=== PATIENT | male | born 1950 | race Caucasian/White ===

== ENCOUNTER 2016-07-17 04:06 | Inpatient (IN) | payer MEDICARE, OTHER ==
[~2016-07-17] VITALS: Ht 185.4 cm; Wt 104.3 kg
--- NOTE | 2016-07-17 04:15 | NUR ---
To bed 6 a 66 yo male bibra with c/o increased generalized weakness and difficulty ambulating. No s/s of acute distress. Aaox4, Breathing even and unlabored. Denies pain, sob, n/v. Noted with right leg pitting edema +4 and left lower leg redness with open blisters per patient. Gowned. Cardiac monitoring on. Awaiting for er md drummond.
--- NOTE | 2016-07-17 04:17 | NUR ---
Dr De La Vega at bedside for eval.
[2016-07-17] MEDS ORDERED: VANCOMYCIN 1 GM in IV D5W 250 ML IV ONE (04:30)
[2016-07-17] MEDS ORDERED: ASPIRIN 81 MG TAB.CHEW PO ONE ×2 (04:30→08:30)
[2016-07-17] MEDS ORDERED: PIPERACILLIN /TAZOBACTAM 3.375 G in IV D5W 50 ML IV ONE (04:30)
[2016-07-17] MEDS ORDERED: ASPIRIN 81 MG TAB.CHEW ONE (04:52)
[2016-07-17] MEDS ORDERED: IV D5W 0 ML IV ONE ×2 (04:53→05:58)
[2016-07-17] MEDS ORDERED: IV SET PRIMARY PUMP SET 1 EA INFUS.SET MC ONE ×3 (04:53→11:06)
[2016-07-17] MEDS ORDERED: IV SET PRIMARY 1 EA INFUS.SET MC ONE (04:53)
[2016-07-17] MEDS ORDERED: PIPERACILLIN /TAZOBACTAM 3.375 G VIAL IV ONE ×2 (04:53→04:54)
[2016-07-17] MEDS ORDERED: IV NS 0.9% 500 ML IV ONE (04:53)
--- NOTE | 2016-07-17 05:05 | NUR ---
started a saline lock on the left forearm g18.
[2016-07-17] MEDS: IV NS 0.9% 1,000 ML BAG IV ONE ×2 (05:10→05:19)
--- NOTE | 2016-07-17 05:19 | NUR ---
dental laboratory technician at bedside to draw blood.
[2016-07-17 05:55] LABS: HEMATOCRIT 37 % (39-51); HEMOGLOBIN 11.4 g/dL (13.5-17.5); LYMPHOCYTES # (AUTO) 0.4 /CMM (0.8-4.8); LYMPHOCYTES % (AUTO) 3.6 % (20.0-44.0); MEAN CORPUSCULAR HEMOGLOBIN 28 PG (26.0-33.0); MEAN CORPUSCULAR HGB CONC 31 g/dl (31.0-36.0); MEAN CORPUSCULAR VOLUME 90 fL (80-96); MONOCYTES # (AUTO) 0.6 /CMM (0.1-1.30); MONOCYTES % (AUTO) 5.6 % (2.0-12.0); NEUTROPHILS # (AUTO) 9.5 /CMM (1.8-8.9); NEUTROPHILS % (AUTO) 90.8 % (43.0-81.0); PLATELET COUNT (AUTO) 177 /CMM (150-450); RDW COEFFICIENT OF VARIATION 19.4 (11.5-15.0); RED BLOOD CELL COUNT(AUTO) 4.08 MIL/uL (4.5-6.0); WHITE BLOOD COUNT (AUTO) 10.4 K/uL (4.3-11.0)
[2016-07-17] MEDS ORDERED: VANCOMYCIN 1 GM VIAL ONE (05:59)
[2016-07-17 06:09] LABS: INR 1.6 (0.87-1.13); PROTHROMBIN TIME 17.6 SECS (9.5-12.7)
[2016-07-17 06:10] LABS: ALBUMIN 3.3 g/dL (3.4-5.0); BILIRUBIN,DIRECT 0.7 mg/dL (0.0-0.2); BILIRUBIN,TOTAL 1.5 mg/dL (0.2-1.0); CALCIUM, SERUM 8.8 mg/dL (8.5-10.1); TOTAL PROTEIN, SERUM 6.1 g/dL (6.4-8.2)
[2016-07-17 06:12] LABS: TROPONIN I 0.197 ng/mL (0.00-0.056)
--- NOTE | 2016-07-17 06:15 | NUR ---
Dr Waterman at bedside.
--- NOTE | 2016-07-17 06:45 | NUR ---
Sukhjinder mora at bedside.
--- NOTE | 2016-07-17 07:09 | NUR ---
[facility] DR. NATA MISHRA.
[2016-07-17] MEDS ORDERED: ASPIRIN 325 MG TABLET ONE (07:13)
--- NOTE | 2016-07-17 07:13 | NUR ---
Report given to Hiram MAURO for allison.
--- NOTE | 2016-07-17 07:15 | NUR ---
RECEIVED REPORT FROM VIKAS MAURO
[2016-07-17] MEDS: ASPIRIN 325 MG TABLET PO ONE ×2 (07:18→08:53)
--- NOTE | 2016-07-17 07:30 | NUR ---
ASPIRIN 325 NOT GIVEN DUE TO DUPLICATE ORDER
--- NOTE | 2016-07-17 07:50 | NUR ---
*SPOKE TO RONAN AT [facility] TRANSFER LINE [phone], FACESHEET FAXED TO [phone]. *SPOKE TO THAO AT CASE MANAGEMENT AT [facility], FACESHEET TO [phone]
[2016-07-17] MEDS ORDERED: LEVO112T2 PO (08:14)
[2016-07-17] MEDS ORDERED: CALC0.253 PO (08:14)
[2016-07-17] MEDS ORDERED: BUME2TAB3 PO (08:14)
[2016-07-17] MEDS ORDERED: APIX5TAB PO (08:14)
[2016-07-17] MEDS ORDERED: HYDR-548 PO (08:15)
[2016-07-17] MEDS ORDERED: ALLO100T PO (08:15)
[2016-07-17] MEDS ORDERED: AMIO200T2 PO (08:15)
[2016-07-17] MEDS ORDERED: FOLI0.8T2 PO (08:17)
[2016-07-17] MEDS ORDERED: POTA10TA15 PO (08:18)
[2016-07-17] MEDS ORDERED: CARV25TA2 PO (08:18)
[2016-07-17] MEDS ORDERED: ATOR40TA PO (08:18)
--- NOTE | 2016-07-17 08:24 | NUR ---
spoke to odalis at [facility] case management [phone]. NO awailable beds at [facility]. OK to admit patient to [facility] tele unit. Odalis showcase trimmer authorized.
--- NOTE | 2016-07-17 08:29 | NUR ---
[facility] paged, dr butler community service organization director [phone]
[2016-07-17] MEDS ORDERED: ASPIRIN EC 81 MG TABLET.DR PO ONE (08:30)
--- NOTE | 2016-07-17 08:46 | NUR ---
REPORT GIVEN TO [place] ZARAGOZA FOR SIVAKUMAR TELE [phone]
--- NOTE | 2016-07-17 08:59 | NUR ---
clinical notes faxed to [facility] case work aide [phone]. cell phone # [phone]
--- NOTE | 2016-07-17 09:17 | NUR ---
patient trasnported to 3w. vss
[2016-07-17 10:00] VITALS: BP 104/73
--- NOTE | 2016-07-17 10:00 | NUR ---
ADMITTED FROM ER. PT. AWAKE, ALERT AND ORIENTED X4. DENIED PAIN AND SOB. V-PACED ON THE MONITOR. HR 70~80. NOTED SKIN ISSUE(SEE THE CHART AND ASSESSMENT). WOUND CARE CONSULT. TOOK A PICTURES. RT. FOOT EDEMA. APPLIED DRESSING ON THE LT LEG. GIVEN UNIT ORIENTATION. SIDE RAILS UP. CALL LIGHT WITHIN REACH. MONITOR CLOSELY.
[2016-07-17 10:18] VITALS: BP 104/73
[2016-07-17] MEDS ORDERED: Z GUARD REMEDY 2 OZ OINT TP PRN (10:30)
[2016-07-17] MEDS ORDERED: ZOLPIDEM TARTRATE 5 MG TABLET PO PRN (10:30)
[2016-07-17] MEDS ORDERED: ONDANSETRON HCL/PF 4 MG/2 ML VIAL IVP PRN (10:30)
[2016-07-17] MEDS ORDERED: MAG HYDROX/AL HYDROX/SIMETH 30 ML UDC PO PRN (10:30)
[2016-07-17] MEDS ORDERED: MAGNESIUM HYDROXIDE 30 ML UDC PO PRN (10:30)
[2016-07-17] MEDS: IV NS 0.9% 1,000 ML IV PRN (11:22)
[2016-07-17] MEDS: LEVOTHYROXINE SODIUM 112 MCG TABLET PO SCH (13:16)
[2016-07-17] MEDS: AMIODARONE HCL 200 MG TABLET PO SCH (13:16)
[2016-07-17] MEDS: APIXABAN 5 MG TABLET PO SCH ×2 (13:16→17:51)
[2016-07-17] MEDS: PANTOPRAZOLE 40 MG TABLET.DR PO SCH (13:16)
--- NOTE | 2016-07-17 15:00 | NUR ---
NOTED UNCONTROLLED A-FIB. PT ASYMPTOMATIC. BP 109/70. NOTIFIED TO DR. PEACE. GAVE AMIODARONE PO.
--- NOTE | 2016-07-17 15:18 | NUR ---
WOUND CARE CONSULT: PATIENT SEEN AND SKIN ASSESSMENT DONE. PATIENT WEAK, UNABLE TO TURN AND REPOSITION SELF IN BED, CONTINENT, MALGORZATA 15, ON STEPHANIE ISOFLEX RICK BED. SEE TODAY'S SKIN ASSESSMENT IN PCS ALONG WITH RECOMMENDATIONS. RECOMMEND MOISTURE PROTECTION AND PRESSURE PREVENTION MEASURES ORDERED. ALL DISCUSSED WITH NURSING STAFF. MD IN AGREEMENT WITH PLAN OF CARE. Addendum: 07/17/16 at 1520 by ILANA CAMPBELL WNDNU Amended: Links added.
[2016-07-17 16:00] VITALS: BP 98/57
[2016-07-17] MEDS ORDERED: SECONDARY IV SET 1 EA INFUS.SET MC ONE (16:50)
[2016-07-17] MEDS: HYDROGEL DRESSING 90 GM TUBE TP SCH (17:05)
[2016-07-17] MEDS: NEOMY SULF/BACITRAC ZN/POLY 15 GM TUBE TP SCH (17:05)
--- NOTE | 2016-07-17 19:00 | NUR ---
CLOSING SHIFT PT. AWAKE, ALERT AND ORIENTED X4. DENIED PAIN AND SOB. V-PACED ON THE MONITOR. HR 70~80. SIDE RAILS UP. CALL LIGHT WITHIN REACH. MONITOR CLOSELY.
--- NOTE | 2016-07-17 19:30 | NUR ---
TELE/RN RECEIVE PATIENT AWAKE, ALERT, ORIENTED, COMFORTABLE, NO C/O PAIN AT THIS TIME, NO SIGNS OF DISTRESS NOTED, CALL LIGHT IN REACH. WILL MONITOR.
[2016-07-17 20:00] VITALS: BP 94/64
[2016-07-17] MEDS: CARVEDILOL 12.5 MG TABLET PO SCH (21:00)
--- NOTE | 2016-07-17 22:00 | NUR ---
TELE/RN PATIENT SLEEPING, AROUSABLE, APPEAR COMFORTABLE, NO SIGNS OF DISTRESS NOTED, CALL LIGHT IN REACH. WILL CONTINUE TO MONITOR.
[2016-07-18] VITALS: BP 110/66
[2016-07-18] MEDS: IV NS 0.9% 1,000 ML IV PRN ×2 (01:09→18:03)
--- NOTE | 2016-07-18 06:11 | NUR ---
TELE/RN AWAKE, COMFORTABLE, NO CHANGE IN CONDITION. ALL NEEDS ATTENDED AT THIS TIME. WILL CONTINUE TO MONITOR.
[2016-07-18 06:59] VITALS: BP 102/62
--- NOTE | 2016-07-18 07:00 | NUR ---
ALARM SECURITY OR SURVEILLANCE MONITOR INITIAL NOTE REPORT RECEIVED AT THE BEDSIDE. PATIENT IS SLEEPING. NO SOB OR DISTRESS NOTED AT THIS TIME. PATIENT DOES NOT APPEAR TO BE IN PAIN, NO FACIAL GRIMACE NOTED. HEART RATE IS VPACING AT 73. BED IN A LOW POSITION, CALL LIGHT WITHIN PATIENT REACH. WILL CONTINUE TO MONITOR.
[2016-07-18 08:00] VITALS: BP 92/68
[2016-07-18 08:32] LABS: EOSINOPHILS # (AUTO) 0.1 /CMM (0.0-0.7); HEMATOCRIT 34 % (39-51); HEMOGLOBIN 10.6 g/dL (13.5-17.5); LYMPHOCYTES # (AUTO) 0.7 /CMM (0.8-4.8); LYMPHOCYTES % (AUTO) 7.8 % (20.0-44.0); MEAN CORPUSCULAR HEMOGLOBIN 28 PG (26.0-33.0); MEAN CORPUSCULAR HGB CONC 31 g/dl (31.0-36.0); MEAN CORPUSCULAR VOLUME 90 fL (80-96); MONOCYTES # (AUTO) 0.6 /CMM (0.1-1.30); NEUTROPHILS # (AUTO) 7.3 /CMM (1.8-8.9); NEUTROPHILS % (AUTO) 84.2 % (43.0-81.0); PLATELET COUNT (AUTO) 124 /CMM (150-450); RDW COEFFICIENT OF VARIATION 19.7 (11.5-15.0); RED BLOOD CELL COUNT(AUTO) 3.76 MIL/uL (4.5-6.0); WHITE BLOOD COUNT (AUTO) 8.7 K/uL (4.3-11.0)
[2016-07-18 08:42] LABS: ALBUMIN 2.6 g/dL (3.4-5.0); BILIRUBIN,TOTAL 0.8 mg/dL (0.2-1.0); CALCIUM, SERUM 8.2 mg/dL (8.5-10.1); CREATININE 4.2 mg/dL (0.6-1.3); MAGNESIUM 2.7 mg/dL (1.8-2.4); PHOSPHORUS 4.7 mg/dL (2.5-4.9); POTASSIUM 3.8 mmol/L (3.5-5.1); TOTAL PROTEIN, SERUM 5.2 g/dL (6.4-8.2)
[2016-07-18] MEDS: AMIODARONE HCL 200 MG TABLET PO SCH (09:00)
[2016-07-18] MEDS: CARVEDILOL 12.5 MG TABLET PO SCH ×2 (09:00→22:35)
[2016-07-18] MEDS: PANTOPRAZOLE 40 MG TABLET.DR PO SCH (09:05)
[2016-07-18] MEDS: LEVOTHYROXINE SODIUM 112 MCG TABLET PO SCH (09:05)
[2016-07-18] MEDS: APIXABAN 5 MG TABLET PO SCH ×2 (09:05→16:45)
[2016-07-18] MEDS: HYDROGEL DRESSING 90 GM TUBE TP SCH (09:06)
[2016-07-18] MEDS: NEOMY SULF/BACITRAC ZN/POLY 15 GM TUBE TP SCH (09:06)
--- NOTE | 2016-07-18 11:39 | NUR ---
MS RN NOTES PATIENT COMPLAINING OF GENERALIZED ACHING PAIN. INFORMED DR PADILLA TO GAVE A VERBAL ORDER FOR GABAPENTIN 100MG TID. ORDERS PLACED AND CARRIED OUT.
[2016-07-18 12:00] VITALS: BP 122/70
[2016-07-18 12:12] LABS: HEPATITIS A AB, IgM Negative (Negative); HEPATITIS B CORE AB, IgM Negative (Negative); HEPATITIS C VIRUS AB <0.1 s/co ratio (0.0-0.9)
[2016-07-18] MEDS: GABAPENTIN 100 MG CAPSULE PO SCH ×2 (12:27→16:45)
[2016-07-18] MEDS ORDERED: FEE PK DOSING 1 MIN EA MC ONE (12:40)
--- NOTE | 2016-07-18 12:53 | NUR ---
ELECTRIC LIFT TRUCK DRIVER NOTE PATIENT STILL COMPLAINING OF 6/10 PAIN IN LOWER DIAPHRAGM. PATIENT ALSO STATING THAT HE HAS THE URGE TO URINATE, BUT IS UNABLE. LAST VOID WAS 0800. DID A BLADDER SCAN ON THE PATIENT AND IT SHOWS >198 ML IN BLADDER. TRIED TO ASSIST PATIENT TO VOID, BUT PATIENT WAS UNABLE. CALLED [facility] AND LEFT A MESSAGE FOR DR PEACE. AWAITING RETURN CALL.
--- NOTE | 2016-07-18 13:13 | NUR ---
SOLAR WATER HEATER INSTALLER NOTE SPOKE TO DR PEACE. STATES THAT IF THE PATIENT HAS NOT VOIDED WITHIN ONE HOUR, THAT IT IS OK TO INSERT A GEORGE. ALSO ORDERED MORPHINE 1MG Q4PRN FOR PAIN. WILL CARRY OUT ORDERS.
[2016-07-18] MEDS ORDERED: MORPHINE SULFATE INJ 2 MG/ML DISP.SYRIN IV PRN (13:30)
[2016-07-18] MEDS ORDERED: VANCOMYCIN 500 MG in IV D5W 100 ML IV SCH (14:00)
[2016-07-18] MEDS ORDERED: SECONDARY IV SET 1 EA INFUS.SET MC ONE (14:28)
--- NOTE | 2016-07-18 15:35 | NUR ---
CORE SHAPER SIDES NOTES RAFIA IS HUNG LATE I WAS DEALING WITH A CRITICAL PATIENT.
[2016-07-18 16:00] VITALS: BP 107/68
--- NOTE | 2016-07-18 16:28 | NUR ---
8TH GRADE MATHEMATICS TEACHER NOTES INSERTED GEORGE PER DR PEACE'S ORDER IF PATIENT HAS NOT VOIDED. PATIENT TOLERATED WELL.
[2016-07-18 17:55] LABS: CANNABINOID, URINE NEGATIVE (NEGATIVE); PHENCYCLIDINE SCREEN,URINE NEGATIVE (NEGATIVE)
--- NOTE | 2016-07-18 19:26 | NUR ---
MS RN CLOSING NOTES NO SIGNIFICANT CHANGES IN PATIENT CONDITION THROUGHOUT THE SHIFT. NO SOB OR DISTRESS NOTED AT THIS TIME. PATIENT DENIES SIGNIFICANT PAIN. BED IN A LOW POSITION, CALL LIGHT WITHIN PATIENT REACH. WILL ENDORSE FOR SIVAKUMAR.
--- NOTE | 2016-07-18 19:30 | NUR ---
TELE/RN RECEIVE PATIENT SLEEPING, APPEAR COMFORTABLE, NO DISTRESS NOTED, IVF INFUSING, CALL LIGHT IN REACH. WILL MONITOR.
--- NOTE | 2016-07-18 20:00 | NUR ---
TELE/RN RECEIVE A CALL FROM MONSERRAT OF [facility] INFORMING THAT A BED IS AVAILABLE AND THAT PATIENT CAN BE TRANSFERRED. MADE MAP DRAFTER AWARE.
--- NOTE | 2016-07-18 20:35 | NUR ---
TELE/RN NOTIFIED DR. RILEY TERRELL ABOUT THE TRANSFER AND TO MAKE AN MD TO MD REPORT TO [facility]. [facility]SERRAT CALLED BACK INFORMING ME THAT DR. RILEY TERRELL CALLED THEM ALREADY. TRANSFER PROCESS WAS INITIATED.
--- NOTE | 2016-07-18 22:30 | NUR ---
TELE/RN AMBULANCE HERE. REPORT GIVEN.
[2016-07-18 22:35] VITALS: BP 117/66
--- NOTE | 2016-07-18 23:17 | NUR ---
TELE/RN PATIENT LEFT THE FLOOR AT 2300 IN STABLE CONDITION, WITH THE F/C, BELONGINGS.
--- NOTE | 2016-07-18 23:17 | NUR ---
TELE/RN REPORT GIVEN TO [place] WAGONER IN [facility]. Addendum: 07/18/16 at 2319 by MARY BRITT RN REPORT GIVEN AT 2300.
== END 2016-07-18 23:05 | disposition short-term general hospital (02) | DRG 280 ==
LOC: ER 04:08 → EDBD 04:08 → TELE 08:51
PROVIDERS: ADMIT Internal Medicine; ATTEND Internal Medicine
DX: I21.4 Non-ST elevation (NSTEMI) myocardial infarction (principal); G93.41 Metabolic encephalopathy; K72.00 Acute and subacute hepatic failure without coma; L03.116 Cellulitis of left lower limb; I13.0 Hypertensive heart and chronic kidney disease with heart failure and stage 1 through stage 4 chronic kidney disease, or unspecified chronic kidney disease; N17.9 Acute kidney failure, unspecified; D68.59 Other primary thrombophilia; L03.115 Cellulitis of right lower limb; I50.9 Heart failure, unspecified; E03.9 Hypothyroidism, unspecified; E11.22 Type 2 diabetes mellitus with diabetic chronic kidney disease; I48.91 Unspecified atrial fibrillation; L89.322 Pressure ulcer of left buttock, stage 2; E78.5 Hyperlipidemia, unspecified; E86.0 Dehydration; G89.29 Other chronic pain; M10.9 Gout, unspecified; N20.0 Calculus of kidney; N18.9 Chronic kidney disease, unspecified; I73.9 Peripheral vascular disease, unspecified; G47.30 Sleep apnea, unspecified; Z95.0 Presence of cardiac pacemaker; L89.152 Pressure ulcer of sacral region, stage 2; L98.9 Disorder of the skin and subcutaneous tissue, unspecified; R74.0 Nonspecific elevation of levels of transaminase and lactic acid dehydrogenase [LDH]; E83.9 Disorder of mineral metabolism, unspecified; E11.51 Type 2 diabetes mellitus with diabetic peripheral angiopathy without gangrene; S81.002A Unspecified open wound, left knee, initial encounter; S81.001A Unspecified open wound, right knee, initial encounter; X58.XXXA Exposure to other specified factors, initial encounter; Y93.9 Activity, unspecified; Y92.009 Unspecified place in unspecified non-institutional (private) residence as the place of occurrence of the external cause; Y99.9 Unspecified external cause status; S81.802A Unspecified open wound, left lower leg, initial encounter
CPT/HCPCS: 36415; 71010-TC; 76705-TC; 76770-TC; 80048-TC; 80053-TC; 80061-TC; 80074; 80076-TC; 80305; 82140-TC; 82962-TC; 83735-TC; 84100-TC; 84484-TC; 85025-TC; 85730-TC; 86850-TC; 87081-TC; 87340; 93307-TC; 97001-TC; A4606; A6248; A6402; J2543; J3370; J7030; J7040; J7060; Z7610

== ENCOUNTER 2016-09-10 10:29 | Inpatient (IN) | payer OTHER ==
[~2016-09-10] VITALS: Ht 182.9 cm; Wt 95.7 kg
[~2016-09-10 10:29] MED LIST: ALLO100T PO; AMIO200T2 PO; APIX5TAB PO; ATOR40TA PO; BUME2TAB3 PO; CALC0.253 PO; CARV25TA2 PO; FOLI0.8T2 PO; HYDR-548 PO; LEVO112T2 PO; POTA10TA15 PO
--- NOTE | 2016-09-10 10:40 | NUR ---
bibra from home dt bilateral leg pain,. patient noted ble with open wound, swollen and with redness. Per patient, this has been going on since April,. patient is aao4, appears in no apparent distress . Respiration even and unlabored,. Skin is warm to touch and non diaphoretic. Pt is afebrile. vss.Will cont to monitor
[2016-09-10] MEDS ORDERED: CEFAZOLIN 2 GM in IV D5W 100 ML IV ONE (11:00)
[2016-09-10 11:03] LABS: BASOPHILS % (AUTO) 0.7 % (0.0-2.0); EOSINOPHILS % (AUTO) 0.2 % (0.0-6.0); HEMATOCRIT 38 % (39-51); HEMOGLOBIN 12.2 g/dL (13.5-17.5); LYMPHOCYTES # (AUTO) 0.9 /CMM (0.8-4.8); MEAN CORPUSCULAR HEMOGLOBIN 28 PG (26.0-33.0); MEAN CORPUSCULAR HGB CONC 32 g/dl (31.0-36.0); MEAN CORPUSCULAR VOLUME 88 fL (80-96); MONOCYTES # (AUTO) 0.7 /CMM (0.1-1.30); MONOCYTES % (AUTO) 9.6 % (2.0-12.0); NEUTROPHILS # (AUTO) 5.2 /CMM (1.8-8.9); NEUTROPHILS % (AUTO) 76.5 % (43.0-81.0); PLATELET COUNT (AUTO) 94 /CMM (150-450); RDW COEFFICIENT OF VARIATION 20.7 (11.5-15.0); RED BLOOD CELL COUNT(AUTO) 4.33 MIL/uL (4.5-6.0); WHITE BLOOD COUNT (AUTO) 6.8 K/uL (4.3-11.0)
--- NOTE | 2016-09-10 11:09 | NUR ---
blood sample sent to lab
[2016-09-10] MEDS ORDERED: IV SET PRIMARY PUMP SET 1 EA INFUS.SET MC ONE ×3 (11:10→20:13)
[2016-09-10] MEDS ORDERED: LEVO125T8 PO (11:11)
[2016-09-10] MEDS ORDERED: BUME2TAB3 PO (11:11)
[2016-09-10 11:25] LABS: INR 1.47 (0.87-1.13); PROTHROMBIN TIME 15.6 SECS (9.5-12.7)
[2016-09-10 11:30] LABS: TROPONIN I 0.105 ng/mL (0.00-0.056)
[2016-09-10 11:35] LABS: ALANINE AMINOTRANSFERASE 41 U/L (12-78); ALBUMIN 3.4 g/dL (3.4-5.0); ALKALINE PHOSPHATASE 85 U/L (46-116); ASPARTATE AMINOTRANSFERASE 74 U/L (15-37); BILIRUBIN,DIRECT 0.5 mg/dL (0.0-0.2); BILIRUBIN,TOTAL 1.2 mg/dL (0.2-1.0); CALCIUM, SERUM 9.1 mg/dL (8.5-10.1); CARBON DIOXIDE 18 mmol/L (21-32); CHLORIDE 105 mmol/L (98-107); CREATININE 5.8 mg/dL (0.6-1.3); GLUCOSE 146 mg/dL (74-106); POTASSIUM 4.1 mmol/L (3.5-5.1); SODIUM SERUM 140 mmol/L (136-145); TOTAL PROTEIN, SERUM 6.3 g/dL (6.4-8.2)
[2016-09-10 11:36] LABS: UREA NITROGEN, BLOOD 98 mg/dL (7-18)
--- NOTE | 2016-09-10 11:40 | NUR ---
PER ADMITTING, OUT OF NETWORK BURGLAR ALARM ASSEMBLER SARAH WAS CONTACTED. TO FAX CLINICAL INFORMATION TO [phone]
[2016-09-10 11:45] LABS: LYMPHOCYTES % (MANUAL) 13 % (16-48); MONOCYTES % (MANUAL) 8 % (0-11.0); NEUTROPHILS % (MANUAL) 79 (42-76)
[2016-09-10] MEDS ORDERED: IV NS 0.9% 1,000 ML ONE (11:58)
[2016-09-10] MEDS ORDERED: IV NS 0.9% 1,000 ML BAG IV ONE (12:00)
[2016-09-10 12:02] LABS: B-TYPE NATRIURETIC PEPTIDE 46156 PG/ML (0-125)
--- NOTE | 2016-09-10 12:15 | NUR ---
PER ABDIEL IN ADMITTING WE ARE STILL WAITING FOR CALL BACK FROM THE CAREER AND TRANSITION TEACHER. MESSAGE WAS LEFT
--- NOTE | 2016-09-10 12:15 | NUR ---
report given to nurse luong for allison
--- NOTE | 2016-09-10 12:31 | NUR ---
Patient is resting comfortably in bed . Easily aroused. VSS
--- NOTE | 2016-09-10 12:36 | NUR ---
STILL WAITING FOR CALL BACK FROM BUSINESS TRANSFORMATION MANAGER
--- NOTE | 2016-09-10 12:44 | NUR ---
PAGED FAMILY MEDICINE RESIDENT FOR [facility] DR PEACE
--- NOTE | 2016-09-10 13:29 | NUR ---
REPAGED DR PEACE
--- NOTE | 2016-09-10 13:49 | NUR ---
PER CHARGE NURSE REPAGED DR PEACE
--- NOTE | 2016-09-10 13:53 | NUR ---
urine sample sent to lab
[2016-09-10 14:11] LABS: APPEARANCE,URINE Clear (CLEAR); BILIRUBIN,URINE Negative (NEGATIVE); BLOOD, URINE Moderate Ery/uL (NEGATIVE); COLOR,URINE Yellow (YELLOW); KETONES,URINE Trace (NEGATIVE); LEUKOCYTE ESTERASE ,URINE Negative (NEGATIVE); NITRITE, URINE Negative (NEGATIVE); PROTEIN,URINE 30 mg/dl (NEGATIVE); UGLUCOSE Negative (NEGATIVE); UROBILINOGEN,URINE 0.2 EU/dL (0.2)
--- NOTE | 2016-09-10 14:40 | NUR ---
pt transported to [address] [place] [address]
--- NOTE | 2016-09-10 15:00 | NUR ---
MS RN OPENING NOTE PATIENT IS ALERT AND ORIENTED x2-3. NO PAIN AT THIS TIME. NO SOB OR DISTRESS NOTED. CALL LIGHT WITHIN REACH. SAFETY MEASURES IMPLEMENTED. IV INTACT AND PATENT NO REDNESS OR SWELLING NOTED. ABLE TO COMMUNICATE NEEDS. SKIN ASSESSMENT DONE, PATIENT HAS BILATERAL LOWER LEG SWELLING. BRUISING ON ARMS AND ON SIDE OF RIBS. PICTURES TAKEN. BELONGINGS AT BEDSIDE. WILL CONTINUE TO MONITOR
[2016-09-10] MEDS ORDERED: IV 1/2NS 1000 ML 1,000 ML IV PRN (15:25)
[2016-09-10] MEDS ORDERED: Z GUARD REMEDY 2 OZ OINT TP PRN (15:30)
[2016-09-10] MEDS ORDERED: ACETAMINOPHEN 325 MG TABLET PO PRN (15:30)
[2016-09-10] MEDS ORDERED: ONDANSETRON HCL/PF 4 MG/2 ML VIAL IVP PRN (15:30)
[2016-09-10] MEDS ORDERED: INSULIN REGULAR, HUMAN 100 UNIT/ML 3 ML VIAL SQ PRN (15:30)
[2016-09-10] MEDS ORDERED: MAG HYDROX/AL HYDROX/SIMETH 30 ML UDC PO PRN (15:30)
[2016-09-10] MEDS ORDERED: ZOLPIDEM TARTRATE 5 MG TABLET PO PRN (15:30)
[2016-09-10] MEDS ORDERED: *INSULIN REGULAR(HUMULIN R)HUM 100 UNIT/ML VIAL SQ PRN (15:30)
[2016-09-10] MEDS ORDERED: DEXTROSE 50%-WATER 50 ML DISP.SYRIN IV PRN (15:30)
[2016-09-10] MEDS ORDERED: HYDROCODONE/APAP 5/325MG 1 EACH TABLET PO PRN (15:30)
[2016-09-10] MEDS ORDERED: BLOOD SUGAR DIAGNOSTIC 1 EACH STRIP VI SCH (15:30)
[2016-09-10] MEDS ORDERED: MAGNESIUM HYDROXIDE 30 ML UDC PO PRN (15:30)
[2016-09-10] MEDS ORDERED: LEVOTHYROXINE SODIUM 125 MCG TABLET PO SCH (16:00)
[2016-09-10] MEDS: AMIODARONE HCL 200 MG TABLET PO SCH (16:00)
[2016-09-10] MEDS ORDERED: FEE PK DOSING 1 MIN EA MC ONE (16:51)
[2016-09-10] MEDS: ATORVASTATIN 40 MG TABLET PO SCH (17:49)
[2016-09-10] MEDS: BUMETANIDE (1 MG) 1 MG TABLET PO SCH (17:49)
[2016-09-10] MEDS: BLOOD SUGAR DIAGNOSTIC 1 EACH STRIP VI SCH ×3 (17:49→22:15)
[2016-09-10] MEDS: ALLOPURINOL 100 MG TABLET PO SCH (17:49)
[2016-09-10] MEDS: APIXABAN 5 MG TABLET PO SCH (18:21)
--- NOTE | 2016-09-10 18:21 | NUR ---
MS RN CLOSING NOTE PATIENT IS ALERT AND ORIENTED x2-3. NO PAIN AT THIS TIME. NO SOB OR DISTRESS NOTED. CALL LIGHT WITHIN REACH AT ALL TIMES. SAFETY MEASURES IMPLEMENTED. IV INTACT AND PATENT NO REDNESS OR SWELLING NOTED. ABLE TO COMMUNICATE NEEDS. PATIENT REFUSED TO HAVE BACKSIDE OF ADMISSION PICTURES DONE. WILL ENDORSE TO POLYSOMNOGRAPH TECH
[2016-09-10] MEDS ORDERED: VANCOMYCIN 500 MG in IV D5W 100 ML IV SCH (19:00)
[2016-09-10 20:00] VITALS: BP 104/51
--- NOTE | 2016-09-10 20:00 | NUR ---
RECEIVED PATIENT IN BED, ALERT AND ORIENTED X 3 WITH EPISODES OF RESTLESSNESS AND FORGETFULNESS. GETTING OUT OF BED UNASSISTED, NO SOB, NO RESPIRATORY DISTRESS, COMPLAINING OF PAIN TO BILATERAL LEGS WHEN STANDING. BILATERAL LEGS HAS CELLULITIS, REMINDED PATIENT TO ELEVATE LEGS. HELPED TO USE BEDSIDE COMMODE, PROVIDED URINAL AT THE BEDSIDE. CALL LIGHT WITHIN REACH.
[2016-09-10] MEDS ORDERED: SECONDARY IV SET 1 EA INFUS.SET MC ONE (20:13)
[2016-09-10] MEDS: HYDROCODONE/APAP 10/325MG 1 EA TABLET PO PRN (20:47)
[2016-09-10] MEDS: CARVEDILOL 12.5 MG TABLET PO SCH (21:00)
--- NOTE | 2016-09-10 21:58 | NUR ---
COREG HELD BP IS LOW ON TWO OCCASIONS, CURRENT BP 103/53 HR 70
[2016-09-10 22:00] VITALS: BP 104/51
[2016-09-11] MEDS: BLOOD SUGAR DIAGNOSTIC 1 EACH STRIP VI SCH (06:17)
--- NOTE | 2016-09-11 06:21 | NUR ---
BG 92 NO INSULIN
--- NOTE | 2016-09-11 06:30 | NUR ---
PATIENT IN BED, ALERT AND AWAKE, NO SOB, NO RESPIRATORY DISTRESS, PROVIDED PAIN MEDICATION DURING SHIFT, SLEPT FOR 7 HOURS, DIURESING DURING SHIFT, NEEDS ATTENDED, CALL LIGHT WITHIN REACH.
[2016-09-11] MEDS ORDERED: PANTOPRAZOLE 40 MG TABLET.DR PO SCH (07:30)
[2016-09-11] MEDS ORDERED: LEVOTHYROXINE SODIUM 125 MCG TABLET PO SCH (07:30)
[2016-09-11 07:31] LABS: BASOPHILS % (AUTO) 0.2 % (0.0-2.0); EOSINOPHILS # (AUTO) 0.1 /CMM (0.0-0.7); EOSINOPHILS % (AUTO) 1.2 % (0.0-6.0); HEMATOCRIT 32 % (39-51); HEMOGLOBIN 10.3 g/dL (13.5-17.5); LYMPHOCYTES # (AUTO) 1.1 /CMM (0.8-4.8); LYMPHOCYTES % (AUTO) 20.8 % (20.0-44.0); MEAN CORPUSCULAR HEMOGLOBIN 29 PG (26.0-33.0); MEAN CORPUSCULAR HGB CONC 32 g/dl (31.0-36.0); MEAN CORPUSCULAR VOLUME 88 fL (80-96); MONOCYTES # (AUTO) 0.5 /CMM (0.1-1.30); MONOCYTES % (AUTO) 9.3 % (2.0-12.0); NEUTROPHILS # (AUTO) 3.5 /CMM (1.8-8.9); NEUTROPHILS % (AUTO) 68.5 % (43.0-81.0); PLATELET COUNT (AUTO) 78 /CMM (150-450); RDW COEFFICIENT OF VARIATION 21.9 (11.5-15.0); RED BLOOD CELL COUNT(AUTO) 3.59 MIL/uL (4.5-6.0); WHITE BLOOD COUNT (AUTO) 5.1 K/uL (4.3-11.0)
--- NOTE | 2016-09-11 07:44 | NUR ---
MS RN OPENING NOTE RECEIVED PATIENT RESTING IN BED, DR AT BEDSIDE DISCUSSING POC AND POSSIBLE DISCHARGE/TRANSFER. PATIENT VERBALIZED UNDERSTANDING, IS ALERT AND ORIENTED x2-3. NO ACUTE DISTRESS OR DISCOMFORT NOTED. RESPIRATIONS EVEN AND UNLABORED. DENIES PAIN AT THIS TIME. IV TO LEFT WRIST AND RIGHT AC INFUSING 1/2NS AT 75CC/HR. SAFETY MEASURES RENDERED, CALL LIGHT PLACED WITHIN REACH. WILL CONTINUE TO MONITOR.
[2016-09-11 07:58] LABS: ALBUMIN 2.5 g/dL (3.4-5.0); BILIRUBIN,TOTAL 0.8 mg/dL (0.2-1.0); CALCIUM, SERUM 8.4 mg/dL (8.5-10.1); CREATININE 4.8 mg/dL (0.6-1.3); MAGNESIUM 2.6 mg/dL (1.8-2.4); PHOSPHORUS 5.5 mg/dL (2.5-4.9); POTASSIUM 3.1 mmol/L (3.5-5.1)
[2016-09-11 08:00] VITALS: BP 91/57
[2016-09-11 08:42] LABS: EOSINOPHILS % (MANUAL) 1 % (0-4); LYMPHOCYTES % (MANUAL) 6 % (16-48); MONOCYTES % (MANUAL) 7 % (0-11.0); NEUTROPHILS % (MANUAL) 86 (42-76)
[2016-09-11] MEDS: ATORVASTATIN 40 MG TABLET PO SCH (08:43)
[2016-09-11] MEDS: ALLOPURINOL 100 MG TABLET PO SCH (08:43)
[2016-09-11 08:45] VITALS: BP 97/57
[2016-09-11] MEDS: CARVEDILOL 12.5 MG TABLET PO SCH (08:45)
[2016-09-11] MEDS: AMIODARONE HCL 200 MG TABLET PO SCH (08:45)
[2016-09-11] MEDS: BUMETANIDE (1 MG) 1 MG TABLET PO SCH (08:45)
[2016-09-11] MEDS ORDERED: VIT B CMPLX 3/FA/VIT C/BIOTIN 1 TAB TABLET PO SCH (09:00)
[2016-09-11] MEDS ORDERED: POTASSIUM CHLORIDE 10 MEQ TABLET.SA PO SCH (09:00)
[2016-09-11] MEDS ORDERED: CALCITRIOL 0.25 MCG CAPSULE PO SCH (09:00)
[2016-09-11] MEDS: APIXABAN 5 MG TABLET PO SCH (09:03)
[2016-09-11] MEDS: HYDROCODONE/APAP 10/325MG 1 EA TABLET PO PRN ×2 (09:03→14:53)
[2016-09-11] MEDS ORDERED: CEFTRIAXONE 1 G in IV D5W 50 ML IV SCH (10:00)
--- NOTE | 2016-09-11 15:30 | NUR ---
DIETETICS PROFESSOR NOTES ALL DISCHARGE FORMS COMPLETED AND SIGNED, ALL DISCHARGE INSTRUCTIONS GIVEN, PATIENT AGREED TO BE TRANSFERRED TO [facility]. REPORT GIVEN TO JEIMY. IV REMOVED AND COVERED WITH 4X4. PATIENT IN PAIN ADMINISTERED NORCO 325-10MG. PATIENT REFUSED TO TAKE PICTURES STATED TO BE IN EXCRUCIATING PAIN AND WANTS TO BE TAKEN OUT OF THE HOSPITAL PA . PATIENT LEFT VIA AMBULANCE IN STABLE CONDITION.
== END 2016-09-11 15:30 | disposition short-term general hospital (02) | DRG 871 ==
LOC: ER 10:32 → MED 12:43
PROVIDERS: ADMIT Internal Medicine; ATTEND Internal Medicine
DX: A41.9 Sepsis, unspecified organism (principal); I21.4 Non-ST elevation (NSTEMI) myocardial infarction; I50.43 Acute on chronic combined systolic (congestive) and diastolic (congestive) heart failure; L03.116 Cellulitis of left lower limb; I42.9 Cardiomyopathy, unspecified; I13.2 Hypertensive heart and chronic kidney disease with heart failure and with stage 5 chronic kidney disease, or end stage renal disease; N18.5 Chronic kidney disease, stage 5; N17.9 Acute kidney failure, unspecified; L03.115 Cellulitis of right lower limb; I48.91 Unspecified atrial fibrillation; Z79.01 Long term (current) use of anticoagulants; E03.9 Hypothyroidism, unspecified; M10.9 Gout, unspecified; D63.8 Anemia in other chronic diseases classified elsewhere; Z95.810 Presence of automatic (implantable) cardiac defibrillator; E11.22 Type 2 diabetes mellitus with diabetic chronic kidney disease; D69.6 Thrombocytopenia, unspecified; G89.29 Other chronic pain; M54.5 Low back pain; E78.5 Hyperlipidemia, unspecified; Z79.899 Other long term (current) drug therapy
CPT/HCPCS: 36415; 71010-TC; 80048-TC; 80053-TC; 80061-TC; 80076-TC; 81000-TC; 82962-TC; 83605-TC; 83735-TC; 83880; 84100-TC; 84484-TC; 85025-TC; 85730-TC; 87040-TC; 93970-TC; A4606; A6402; J0690; J0696; J1815; J3370; J3490; J7030; J7060; Z7610